=== PATIENT | female | born 1975 | race Hispanic/Latino ===

== ENCOUNTER → 2017-07-16 | Outpatient (CLI) | payer BC, OTHER ==
[~2017-07-16] MED LIST: ALPR1TAB7 PO; CITA10TA7 PO; FLUT16H NS; FOLI1TAB15 PO; GADOBENATE DIMEGLUMINE 20 ML IV ONE; HYDR200T4 PO; LORA10TA45 PO; METH25VI11 IJ; MULT80TA PO; SULF500T8 PO; TRAM50TA4 PO; ZOLP5TAB8 PO
== END | disposition home or self-care (01) ==
LOC: RAH 08:54
PROVIDERS: ATTEND Family Medicine
DX: R51 Headache (principal)
CPT/HCPCS: 70553; A9577

== ENCOUNTER → 2020-10-26 | Outpatient (CLI) | payer BC, OTHER ==
[~2020-10-26] MED LIST changes: -GADOBENATE DIMEGLUMINE 20 ML IV ONE
== END | disposition home or self-care (01) ==
LOC: SHCH 12:59
PROVIDERS: ATTEND Internal Medicine Cardiovascular Disease
DX: I08.8 Other rheumatic multiple valve diseases (principal)
CPT/HCPCS: 93306; 93356